=== PATIENT | male | born 2000 | race African-American/Black ===

== ENCOUNTER 2024-04-02 19:24 | Emergency (ER) | payer OTHER ==
[~2024-04-02] VITALS: Ht 188 cm; Wt 82.6 kg
[2024-04-02 19:54] VITALS: BP 136/87; TEMP 98.1; O2SAT 98
== END 2024-04-02 21:01 | disposition home or self-care (01) ==
LOC: ER 19:44
DX: S13.4XXA Sprain of ligaments of cervical spine, initial encounter (principal); M54.50 Low back pain, unspecified; M54.2 Cervicalgia; V43.62XA Car passenger injured in collision with other type car in traffic accident, initial encounter; Y93.89 Activity, other specified; Y92.488 Other paved roadways as the place of occurrence of the external cause; Y99.8 Other external cause status